=== PATIENT | female | born 1965 | race Caucasian/White ===

== ENCOUNTER 2022-08-12 11:24 | Emergency (ER) | payer OTHER ==
[~2022-08-12] VITALS: Ht 157.4 cm; Wt 65.8 kg
== END 2022-08-12 13:10 | disposition left against medical advice (07) ==
LOC: ED 11:24
DX: M54.9 Dorsalgia, unspecified (principal); Z53.21 Procedure and treatment not carried out due to patient leaving prior to being seen by health care provider